=== PATIENT | male | born 1960 | race Caucasian/White ===

== ENCOUNTER → 2018-02-16 09:08 | Outpatient (CLI) | payer OTHER, SELFPAY ==
--- NOTE | 2018-02-16 09:15 | US_ITS ---
US abdomen complete HISTORY: Abdominal pain right-sided abdominal pain ITS.REASON: ACUTE PANCREATITIS ORDERING PHYSICIAN: Clay Kwok MD PATIENT AGE: 57 years COMPARISON: CT abdomen 02/03/2018 TECHNIQUE. Transabdominal Ultrasound entire abdomen/upper abdomen . FINDINGS: PANCREAS:Unremarkable. Only fair visualization. Partial obscured. No obvious mass or abnormal fluid collection. No ductal dilatation LIVER: Fatty liver changes. Slightly patchy. No significant focal liver lesions evident. No intrahepatic biliary ductal dilatation. Portal vein normal direction flow and caliber. Common duct. Normal caliber 3.7 mm at hilum of liver Kidneys. Cortex well-maintained bilaterally. No hydronephrosis or significant mass. RIGHT KIDNEY:. Cystic area at central right kidney 1 cm x 1.2 cm likely small parapelvic cyst. LEFT KIDNEY:Unremarkable. No hydronephrosis. Normal size and echogenicity. GALLBLADDER: Trace sludge No gallstones, gallbladder wall thickening, pericholecystic fluid, or biliary dilatation. AORTA:No evidence of aneurysmal dilatation. Normal caliber and tapers as it continues distal. SPLEEN:,... Difficult to evaluate. Relatively small spleen As seen on prior CT, but WNL.. ASCITES:None demonstrated. =======IMPRESSION:======== Minor observations. No prominent findings.. . Gallbladder. Small with trace sludge. no gallstones Liver. Mild patchy fatty changes. Kidneys normal size, with likely 1 cm parapelvic cyst right kidney
== END ==
PROVIDERS: PCP Family Medicine; Visit Provider Family Medicine
DX: K85.90 Acute pancreatitis without necrosis or infection, unspecified (principal)
CPT/HCPCS: 76700

== ENCOUNTER → 2018-07-10 15:29 | Outpatient (CLI) | payer OTHER, SELFPAY ==
--- NOTE | 2018-07-10 15:35 | XR_ITS ---
XR chest 2V HISTORY: ITS.REASON: SOB,COUGH,TOBACCO USE ORDERING PHYSICIAN: Alley Leonardo PATIENT AGE: 58 years COMPARISON: 07/26/2015 FINDINGS: The cardiomediastinal silhouette and pulmonary vascularity are within normal limits. The lungs are clear without infiltrates, suspicious nodules, or pleural effusions. No acute bony abnormalities. IMPRESSION: Negative chest, no acute finding
== END ==
PROVIDERS: PCP Family Medicine; Visit Provider Nurse Practitioner Family
DX: R06.02 Shortness of breath (principal); R05 Cough; Z72.0 Tobacco use
CPT/HCPCS: 71046

== ENCOUNTER → 2019-01-18 12:07 | Outpatient (CLI) | payer OTHER, SELFPAY ==
[2019-01-18 12:27] LABS: Basophils # 0.1 K/mm3 (0-0.2); Basophils % 0.5 % (0.1-2.0); Eosinophils # 0.1 K/mm3 (0.0-0.4); Hematocrit 46.5 % (42.0-52.0); Hemoglobin 15.1 g/dL (14.1-18.0); Lymphocytes # 2.5 K/mm3 (0.7-4.5); Lymphocytes % 27.7 % (10-50); Mean Corpuscular HGB Conc 32.5 g/dL (31.8-35.4); Mean Corpuscular Hemoglobin 30.2 pg (27.0-31.2); Mean Corpuscular Volume 92.9 fl (80-94); Mean Platelet Volume 6.6 fl (7.4-10.4); Monocytes # 0.6 K/mm3 (0.1-1.0); Monocytes % 6.8 % (1.7-9.3); Neutrophils # 5.9 K/mm3 (1.8-7.8); Neutrophils % 64.1 % (37.0-80.0); Platelet Count 359 K/mm3 (142-424); Red Cell Distribution Width 13.3 % (11.5-17.5); White Blood Count 9.2 K/mm3 (4.8-10.8)
[2019-01-18 13:06] LABS: Alanine Aminotransferase 30 U/L (12-78); Albumin Level 3.9 gm/dL (3.4-5.0); Albumin/Globulin Ratio 1.3 (1.1-1.8); Alkaline Phosphatase 86 U/L (46-116); Amylase 50 U/L (25-115); Aspartate Amino Transferase 22 U/L (15-37); Bilirubin,Total 0.3 mg/dL (0.2-1.0); Blood Urea Nitrogen 13 mg/dL (7-18); Calcium 8.6 mg/dL (8.5-10.1); Carbon Dioxide 27 mmol/L (21.0-32.0); Chloride 105 mmol/L (98-107); Creatinine,Serum 1.02 mg/dL (0.70-1.30); Estimated Glomerular Filt Rate 75 ml/min (>60); GFR (African American) 91 ML/MIN (>60); Globulin 3.1 gm/dl (1.3-3.2); Glucose 93 mg/dL (74-106); Lipase 133 u/L (73-393); Sodium 142 mmol/L (136-145)
[2019-01-19 15:05] LABS: H. pylori Breath Test Negative (Negative)
== END ==
PROVIDERS: PCP Family Medicine; Visit Provider Nurse Practitioner Family
DX: R10.10 Upper abdominal pain, unspecified (principal); R14.0 Abdominal distension (gaseous)
CPT/HCPCS: 36415; 80053; 82150; 83013; 83690; 85025

== ENCOUNTER → 2019-02-01 10:50 | Outpatient (CLI) | payer OTHER, SELFPAY ==
[2019-02-01 11:50] LABS: Blood Urea Nitrogen 13 mg/dL (7-18); Creatinine,Serum 1.08 mg/dL (0.70-1.30); Estimated Glomerular Filt Rate 70 ml/min (>60); GFR (African American) 85 ML/MIN (>60)
== END ==
PROVIDERS: Visit Provider Nurse Practitioner Family
DX: Z01.818 Encounter for other preprocedural examination (principal)
CPT/HCPCS: 36415; 82565; 84520

== ENCOUNTER → 2019-02-02 08:57 | Outpatient (CLI) | payer OTHER, SELFPAY ==
--- NOTE | 2019-02-02 09:03 | CT_ITS ---
PROCEDURE: CT ABDOMEN PELVIS W CON CLINICAL HISTORY: ABD WALL HERNIA, ABD BLOATING Abdominal wall bloating after eating, evaluate for hernia COMPARISON: ABDPELWO CT abdomen pelvis wo con from 02/03/2018 TECHNIQUE: 75 mL Optiray 350 Axial images obtained with sagittal and coronal reformats. All CT scans at the facility use one or more dose reduction, viz: automated exposure control, ma/kV adjustment per patient size (including targeted exams where dose is matched to indication, i.e. head), or iterative reconstruction technique. FINDINGS: No acute finding in the lung bases. The liver, gallbladder, spleen, adrenal glands, and pancreas have an unremarkable appearance. No renal or ureteral calculi. There is mild prominence of the right renal pelvis probably related to parapelvic renal cyst. No ureteral dilatation or ureteral calculi evident. No evidence of appendicitis. No intestinal obstruction or free air. There is mild thickening of the sigmoid colon nonspecific. No abdominal wall hernia is evident. No acute bony anomalies. IMPRESSION: No acute finding. No umbilical hernia apparent Dictated by: Randell Chawla MD 02/03/2019 12:51 Electronically signed by Randell Chawla MD in [facility] 02/03/2019 12:51
== END ==
PROVIDERS: PCP Family Medicine; Visit Provider Nurse Practitioner Family
DX: K43.9 Ventral hernia without obstruction or gangrene (principal); R14.0 Abdominal distension (gaseous)
CPT/HCPCS: 74177; Q9967

== ENCOUNTER → 2020-01-26 11:04 | Outpatient (CLI) | payer OTHER, SELFPAY ==
--- NOTE | 2020-01-26 11:11 | XR_ITS ---
PROCEDURE: XR LUMBAR SPINE 6V W BENDING CLINICAL INDICATION: LUMBAGO W/ SCIATICA L AND R SIDE COMPARISON: No exams were available for comparison FINDINGS: Minimal lumbar curvature convex left. Mild multilevel endplate osteophytes are present with mild degenerative disc disease at L3-L4. There is some endplate sclerosis superiorly at L5. No fracture or dislocation. No lytic or blastic change. Incidental note is made of vascular calcification. Flexion and extension views are obtained showing no abnormal subluxation. Other findings:None. IMPRESSION: Mild lumbar spondylosis as described above with degenerative changes. No abnormal subluxation in flexion or extension Dictated by: Randell Chawla MD 01/26/2020 16:52 Randell Chawla MD in [facility] 01/26/2020 16:52
== END ==
PROVIDERS: PCP Family Medicine; Visit Provider Family Medicine
DX: M54.42 Lumbago with sciatica, left side (principal); M54.41 Lumbago with sciatica, right side
CPT/HCPCS: 72114

== ENCOUNTER → 2020-02-02 09:24 | Outpatient (CLI) | payer OTHER, SELFPAY ==
--- NOTE | 2020-02-02 09:28 | US_ITS ---
APPROVED REPORT Exam Type: Lower Extremity Segmental Pressures Dye Mixer: Alley Lakhani RVT Indications Claudication: Bilaterally Rest Pain: Bilaterally Current Smoker CAD BILATERAL LEG PAIN Risk Factors Hypertension CAD Cardiac Disease Current Smoker Pressures/Indices Right Indices Left Indices Brachial 129.00 mmHg Brachial 133.00 mmHg Low Thigh 89.00 mmHg 0.67 Low Thigh 158.00 mmHg 1.19 Calf 91.00 mmHg 0.68 Calf 114.00 mmHg 0.86 Ankle(PT) 88.00 mmHg 0.66 Ankle(PT) 127.00 mmHg 0.95 Ankle(DP) 77.00 mmHg 0.58 Ankle(DP) 135.00 mmHg 1.02 Digit 65.00 mmHg 0.49 Digit 119.00 mmHg 0.89 Findings RT GREGORY:0.6 LT GREGORY:1.02 RT TBI:0.4 LT TBI:0.8 PT WAS UNABLE TO WALK ON TREADMILL R/T SEVERE LEG PAIN WAVEFORMS DECREASED AT RT ANKLE LEVEL PULSES DIMINISHED ON THE RIGHT Conclusion RT GREGORY:0.6 LT GREGORY:1.02 RT TBI:0.4 LT TBI:0.8 PT WAS UNABLE TO WALK ON TREADMILL R/T SEVERE LEG PAIN WAVEFORMS DECREASED AT RT ANKLE LEVEL PULSES DIMINISHED ON THE RIGHT Moderate right arterial disease Electronically signed by : Randell Chawla MD 02/02/2020 18:31:44
== END ==
PROVIDERS: PCP Family Medicine; Visit Provider Family Medicine
DX: I73.9 Peripheral vascular disease, unspecified (principal)
CPT/HCPCS: 93923

== ENCOUNTER 2020-08-08 18:25 | Emergency (ER) | payer BC, SELFPAY ==
[2020-08-08] VITALS (13 sets, daily range): BP systolic 122–131; BP diastolic 74; PULSE 66–76; RESP 14–18; TEMP 36.6–36.7; O2SAT 93–97; BMI 29.2
--- NOTE | 2020-08-08 18:12 | ECG_ITS ---
APPROVED REPORT Exam: Resting ECG HR:72 bpm ECG Measurements Heart Rate 72 AXES HI 196 P 49 QRSd 90 QRS 6 QT 398 T 35 QTc 435 Conclusion Normal sinus rhythm Inferior infarct, old changes late transition - old changes Abnormal ECG Electronically signed by : Clay Gonzales, 08/09/2020 17:58:52
--- NOTE | 2020-08-08 18:31 | XR_ITS ---
PROCEDURE: XR CHEST 2V CLINICAL HISTORY: chest pain Smoker COMPARISON: CR CXR1 CHEST-PORTABLE from 06/22/2015 CR CXR1 CHEST-PORTABLE from 07/26/2015 CR CXR2V XR chest 2V from 07/10/2018 FINDINGS: The cardiomediastinal silhouette and pulmonary vascularity are within normal limits. COPD changes with coarsening of the bronchovascular markings which may be seen with smoking related lung disease. No lobar consolidation or collapse. Mild degenerative changes thoracic spine IMPRESSION: Chronic changes, no acute finding Dictated by: Randell Chawla MD 08/09/2020 07:17 Randell Chawla MD in [facility] 08/09/2020 07:17
[2020-08-08 18:41] LABS: Basophils # 0.1 K/mm3 (0-0.2); Basophils % 0.7 % (0.1-2.0); Eosinophils # 0.1 K/mm3 (0.0-0.4); Eosinophils % 1.7 % (0.1-12.0); Hematocrit 46.5 % (42.0-52.0); Hemoglobin 15.3 g/dL (14.1-18.0); Lymphocytes % 35.6 % (10-50); Mean Corpuscular HGB Conc 32.9 g/dL (31.8-35.4); Mean Corpuscular Hemoglobin 29.6 pg (27.0-31.2); Mean Platelet Volume 6.5 fl (7.4-10.4); Monocytes # 0.6 K/mm3 (0.1-1.0); Monocytes % 7.5 % (1.7-9.3); Neutrophils # 4.6 K/mm3 (1.8-7.8); Neutrophils % 54.6 % (37.0-80.0); Platelet Count 319 K/mm3 (142-424); Red Blood Count 5.17 M/mm3 (4.60-6.20); Red Cell Distribution Width 13.6 % (11.5-17.5); White Blood Count 8.3 K/mm3 (4.8-10.8)
[2020-08-08 18:44] LABS: Chloride 105 mmol/L (98-107)
[2020-08-08 18:45] LABS: Sodium 139 mmol/L (136-145)
[2020-08-08 18:48] LABS: Blood Urea Nitrogen 19 mg/dl (9-20); Calcium 9.1 mg/dl (8.4-10.2); Carbon Dioxide 27 mmol/L (22.0-30.0); Creatinine Clearance Estimated 87 mL/min (50-200); Estimated Glomerular Filt Rate 76 ml/min (>60); GFR (African American) 93 ML/MIN (>60); Glucose 130 mg/dl (74-100)
[2020-08-08 19:04] LABS: Troponin I < 0.01 ng/ml (0.00-0.034)
--- NOTE | 2020-08-08 20:52 | HMH.EDCP ---
ED Disposition Clinical Impression: Unstable angina pectoris, PAD (peripheral artery disease), Tobacco dependence Disposition: Left Against Medical Advice Condition on Discharge: Good Instructions: DI for Angina Additional Instructions: see card in am and return if any problems Referrals: Clay Kwok MD [Primary Care Provider] - - Critical Care Critical Care Time: No Attestation: On 08/08/20, the high probability of a clinically significant, sudden or life threatening deterioration of the following system(s) required my full and direct attention, intervention and personal management. The time I documented below is in addition to time spent performing reported procedures but includes the following listed in this critical care notation. Medical Decision Making - Medical Records Medical records reviewed: Yes: I reviewed the patient's medical records. - Taran Inquiry Pt receiving controlled substance: No Vital Signs: 08/08/20 18:25 08/08/20 18:28 08/08/20 18:30 Temperature 97.9 F Temperature Source Oral Pulse Rate 76 72 Pulse Rate [Left Radial] 75 Respiratory Rate 18 Blood Pressure 126/74 Blood Pressure [Right Arm] 122/74 Blood Pressure Mean 98 Blood Pressure Mean [Right Arm] 90 Blood Pressure Source [Right Arm] Automatic Cuff Blood Pressure Position [Right Arm] Sitting 02 Sat by Pulse Oximetry 94 L 95 94 L Oxygen Delivery Method Room Air 08/08/20 18:45 08/08/20 19:00 08/08/20 19:15 Temperature Temperature Source Pulse Rate 67 74 76 Pulse Rate [Left Radial] Respiratory Rate Blood Pressure Blood Pressure [Right Arm] Blood Pressure Mean Blood Pressure Mean [Right Arm] Blood Pressure Source [Right Arm] Blood Pressure Position [Right Arm] 02 Sat by Pulse Oximetry 94 L 95 96 Oxygen Delivery Method 08/08/20 19:30 08/08/20 19:45 08/08/20 20:00 Temperature Temperature Source Pulse Rate 72 72 68 Pulse Rate [Left Radial] Respiratory Rate Blood Pressure Blood Pressure [Right Arm] Blood Pressure Mean Blood Pressure Mean [Right Arm] Blood Pressure Source [Right Arm] Blood Pressure Position [Right Arm] 02 Sat by Pulse Oximetry 93 L 95 96 Oxygen Delivery Method 08/08/20 20:15 08/08/20 20:30 08/08/20 20:45 Temperature Temperature Source Pulse Rate 66 70 68 Pulse Rate [Left Radial] Respiratory Rate Blood Pressure Blood Pressure [Right Arm] Blood Pressure Mean Blood Pressure Mean [Right Arm] Blood Pressure Source [Right Arm] Blood Pressure Position [Right Arm] 02 Sat by Pulse Oximetry 96 96 95 Oxygen Delivery Method - Lab Data Lab results reviewed: Yes: I reviewed the patient's lab results. Lab Results 08/08/20 18:30: WBC 8.3, RBC 5.17, Hgb 15.3, Hct 46.5, MCV 90.0, MCH 29.6, MCHC 32.9, RDW 13.6, Plt Count 319, MPV 6.5 L, Neut % (Auto) 54.6, Lymph % (Auto) 35.6, [place] % (Auto) 7.5, Eos % (Auto) 1.7, Baso % (Auto) 0.7, Neut # (Auto) 4.6, Lymph # (Auto) 3.0, [place] # (Auto) 0.6, Eos # (Auto) 0.1, Baso # (Auto) 0.1 08/08/20 18:30: Sodium 139, Potassium 4.0, Chloride 105, Carbon Dioxide 27, Anion Gap 11.0, BUN 19, Creatinine 1.00, Estimated Creat Clear 87, Estimated GFR 76, Est GFR ( Amer) 93, Glucose 130 H, Calcium 9.1, Troponin I < 0.01 08/08/20 21:17: Troponin I < 0.01 Result diagrams: 08/08/20 18:30 08/08/20 18:30 Orders (Tests/Meds): ED MEDICATIONS Discontinued Medications Generic Name Dose Route Start Last Admin Trade Name Freq PRN Reason Stop Dose Admin Aspirin 324 mg 08/08/20 19:04 08/08/20 19:05 Aspirin 81mg Chewable Tablet PO 08/08/20 19:05 324 mg ONCE ONE Administration ORDERS Category Date Time Status XR chest 2V Stat Exams 08/08/20 18:31 Taken Troponin I Q3H Lab 08/09/20 00:45 Ordered - Radiology Data #1 Image(s): Chest Image Reviewed: Yes I reviewed the patient's radiology image Preliminary Findin
--- NOTE | 2020-08-08 21:00 | ECG_ITS ---
APPROVED REPORT Exam: Resting ECG HR:55 bpm ECG Measurements Heart Rate 55 AXES SD 160 P 48 QRSd 84 QRS 3 QT 436 T 23 QTc 417 Conclusion Sinus bradycardia Old inferior changes Late r wave progression Abnormal ECG Electronically signed by : Clay Gonzales, 08/09/2020 17:57:57
[2020-08-08 21:48] LABS: Troponin I < 0.01 ng/ml (0.00-0.034)
--- NOTE | 2020-08-08 21:53 | PC.NURSE ---
patient refused to be admitted. pt signed AMA
== END 2020-08-08 21:58 | disposition left against medical advice (07) ==
PROVIDERS: Emergency Provider Family Medicine; PCP Family Medicine
DX: I20.0 Unstable angina (principal); I73.9 Peripheral vascular disease, unspecified; F17.210 Nicotine dependence, cigarettes, uncomplicated; Z20.822 Contact with and (suspected) exposure to COVID-19; I25.10 Atherosclerotic heart disease of native coronary artery without angina pectoris; I25.2 Old myocardial infarction; I10 Essential (primary) hypertension; E78.5 Hyperlipidemia, unspecified; Z95.5 Presence of coronary angioplasty implant and graft; Z88.5 Allergy status to narcotic agent
CPT/HCPCS: 71046; 80048; 84484; 85025; 93005; 99282

== ENCOUNTER → 2020-08-09 13:18 | Outpatient (CLI) | payer OTHER, SELFPAY | PROVIDERS: PCP Family Medicine; Visit Provider Internal Medicine | DX: Z01.818 Encounter for other preprocedural examination (principal); Z20.822 Contact with and (suspected) exposure to COVID-19; I25.10 Atherosclerotic heart disease of native coronary artery without angina pectoris; I10 Essential (primary) hypertension; I73.9 Peripheral vascular disease, unspecified; M79.604 Pain in right leg; M79.605 Pain in left leg; E78.5 Hyperlipidemia, unspecified; F17.200 Nicotine dependence, unspecified, uncomplicated; Z95.5 Presence of coronary angioplasty implant and graft | CPT/HCPCS: U0003 ==

== ENCOUNTER 2020-08-10 07:40 | Day surgery (SDC) | payer OTHER, SELFPAY ==
[2020-08-10] VITALS (12 sets, daily range): BP systolic 108–171; BP diastolic 64–98; PULSE 53–76; RESP 16–18; TEMP 36.9; O2SAT 91–97; BMI 26.9
--- NOTE | 2020-08-10 | IR_ITS ---
APPROVED REPORT Patient Location: Outpatient Cost Accountant: CRISTOBAL Looney RT (R) PROCEDURES Left heart catheterization Left ventriculogram Selective coronary angiogram Drug-eluting stent deployment to the proximal mid dominant right coronary Catheter placement in the left external iliac artery Left external iliac artery antegrade angiogram with unilateral runoff to the left foot Catheter placement in the right external iliac artery Right external iliac artery antegrade angiogram with unilateral runoff to the right foot Catheter placement distal abdominal aorta Distal abdominal aortography INDICATION Known coronary disease, Angina pectoris type IV, Peripheral artery disease, Abnormal GREGORY, Miriam claudication class III Informed consent was obtained prior to the procedure. COMPLICATIONS None Estimated Blood Loss: Less than 10 mls TECHNIQUE One percent lidocaine used to anesthetize the right anterior aspect of the wrist. The right radial artery was accessed via the Seldinger technique. A 6 Prydeinig sheath was placed in the right radial artery. 2.5 mg of verapamil, 800 mcg of nitroglycerin, 1mg Lidocaine and 5000 U Heparin were given through the arterial sheath. The trap catheter was also used to perform left heart catheterization, left ventriculogram and selective coronary angiogram. A PV multi curve catheter was also used to perform catheterization of the right coronary artery. The same catheter was placed in the left external iliac artery and antegrade angiography was performed. There were technical errors with the camera which had to be reset after angiography of the left leg therefore a digital subtraction could not be adequately performed. The catheter was then pulled back and placed into the right external iliac artery where antegrade angiography was performed. Following this the cath was placed in the distal abdominal aorta and distal abdominal aortography was performed. Following this a 6 Prydeinig multipurpose catheter was placed in the right coronary artery after therapeutic heparin and a therapeutic ACT were achieved. A BMW wire was placed distally and a 3.5 x 15 mm resolute Jaun stent was deployed at 20 thania reducing the stenosis. A 3.5 x 8 mm noncompliant balloon was then deployed at 24 thania in the mid segment of the under deployed stent in order to post dilate. An additional 3.5 x 8 mm balloon was then placed in the same segment and deployed at 24 thania further reducing the stenosis. Still there were angiographically unsatisfactory results therefore a 4 mm x 12 mm noncompliant balloon was placed in the same area and deployed at 24 thania further post dilating this time giving satisfactory results. After achieving excellent angiographic results with DOUG-3 flow down the vessel before and after the procedure the apparatus was removed the sheath was removed good hemostasis was achieved using TR banding patient was transferred to the postop holding in stable condition ANGIOGRAPHIC RESULTS The left main artery Has an ostial 20% stenosis The left anterior descending artery Is a stent of proximal segment which is widely patent with minimal in-stent restenosis with excellent proximal distal transitioning. The LAD is a large-caliber vessel which wraps the apex The circumflex artery Nondominant normal The right coronary artery Is a large dominant vessel has proximal 10 to 20% stenosis with a mid vessel hazy greater than 70% stenosis. Distally there are additional 30% stenoses which extend into the proximal posterior descending artery The HASSAN ventriculogram reveals Slightly hyperdynamic at 70% The left ventricular end-diastolic pressure 10 to 15 mmHg The distal abdominal aorta is mildly ather
[2020-08-10 12:46] LABS: CATHL Activated Clotting Time 338 SEC (74-125)
--- NOTE | 2020-08-10 13:30 | HMH.PHACLD ---
Stefano Catalan has received discharge medication counseling on the following medications: NEW MEDICATIONS: LOSARTAN CONTINUED MEDICATIONS: ASPIRIN, PLAVIX, BISOPROLOL PATIENT CAN'T TAKE ANY STATINS
== END 2020-08-10 13:33 | disposition home or self-care (01) ==
PROVIDERS: PCP Family Medicine; Visit Provider Internal Medicine
DX: I70.223 Atherosclerosis of native arteries of extremities with rest pain, bilateral legs (principal); T82.855A Stenosis of coronary artery stent, initial encounter; I25.118 Atherosclerotic heart disease of native coronary artery with other forms of angina pectoris; I10 Essential (primary) hypertension; I77.1 Stricture of artery; Y83.1 Surgical operation with implant of artificial internal device as the cause of abnormal reaction of the patient, or of later complication, without mention of misadventure at the time of the procedure; Z79.899 Other long term (current) drug therapy; Z95.5 Presence of coronary angioplasty implant and graft; F17.200 Nicotine dependence, unspecified, uncomplicated; E78.5 Hyperlipidemia, unspecified
CPT/HCPCS: 36247; 75716; 85347; 92928; 93458; 99152; 99153; C1725; C1769; C1874; C9600; J1644; Q9966; Q9967

== ENCOUNTER 2020-12-15 08:53 | Emergency (ER) | payer OTHER, SELFPAY ==
--- NOTE | 2020-12-15 08:51 | ECG_ITS ---
APPROVED REPORT Exam: Resting ECG HR:66 bpm ECG Measurements Heart Rate 66 AXES MO 186 P 67 QRSd 82 QRS 41 QT 398 T 56 QTc 417 Conclusion Normal sinus rhythm Normal ECG Electronically signed by : Clay Gonzales, 12/16/2020 15:21:19
[2020-12-15 08:53] VITALS: BP 147/78; PULSE 68; RESP 16; TEMP 36.7; O2SAT 97; BMI 29.2
[2020-12-15 09:00] VITALS: BP 132/72; RESP 23
--- NOTE | 2020-12-15 09:04 | XR_ITS ---
PROCEDURE: XR CHEST PORTABLE CLINICAL HISTORY: cough COMPARISON: CR CXR1 CHEST-PORTABLE from 07/26/2015 CR CXR2V XR chest 2V from 07/10/2018 CR XR CHEST 2V from 08/08/2020 FINDINGS: The cardiomediastinal silhouette and pulmonary vascularity are within normal limits. Vascular calcification is noted. Minor chronic interstitial changes are noted. No focal infiltrates, suspicious nodules, or pleural effusions. No acute bony abnormalities. IMPRESSION: No focal consolidation or pleural effusions. Dictated by: Leonor Capellan 12/15/2020 09:52 Leonor Capellan in [place] 12/15/2020 09:52
[2020-12-15 09:10] LABS: Basophils # 0.1 K/mm3 (0-0.2); Basophils % 1.1 % (0.1-2.0); Eosinophils # 0.2 K/mm3 (0.0-0.4); Eosinophils % 2.2 % (0.1-12.0); Hematocrit 47.1 % (42.0-52.0); Hemoglobin 15.9 g/dL (14.1-18.0); Lymphocytes # 2.5 K/mm3 (0.7-4.5); Lymphocytes % 36.2 % (10-50); Mean Corpuscular HGB Conc 33.8 g/dL (31.8-35.4); Mean Corpuscular Hemoglobin 30.5 pg (27.0-31.2); Mean Corpuscular Volume 90.4 fl (80-94); Mean Platelet Volume 6.6 fl (7.4-10.4); Monocytes # 0.4 K/mm3 (0.1-1.0); Monocytes % 5.2 % (1.7-9.3); Neutrophils # 3.9 K/mm3 (1.8-7.8); Neutrophils % 55.2 % (37.0-80.0); Platelet Count 333 K/mm3 (142-424); Red Blood Count 5.22 M/mm3 (4.60-6.20); Red Cell Distribution Width 13.9 % (11.5-17.5)
[2020-12-15 09:11] LABS: Chloride 106 mmol/L (98-107)
[2020-12-15 09:12] LABS: Potassium 4.2 mmoL/L (3.5-5.1); Sodium 142 mmol/L (136-145)
[2020-12-15 09:14] LABS: Alanine Aminotransferase 24 U/L (12-78); Alkaline Phosphatase 91 U/L (38-126); Anion Gap 11.2 mEq/L (5-15); Aspartate Amino Transferase 32 U/L (17-59); Bilirubin,Total 0.4 mg/dl (0.2-1.3); Blood Urea Nitrogen 14 mg/dl (9-20); Carbon Dioxide 29 mmol/L (22.0-30.0); Creatinine Clearance Estimated 72 mL/min (50-200); Estimated Glomerular Filt Rate 62 ml/min (>60); GFR (African American) 75 ML/MIN (>60)
[2020-12-15 09:15] LABS: Albumin Level 4.5 g/dl (3.5-5.0); Albumin/Globulin Ratio 1.7 (1.1-1.8); Globulin 2.7 g/dL (1.3-3.2); Glucose 123 mg/dl (74-100); Total Protein,Serum 7.2 g/dl (6.3-8.2)
--- NOTE | 2020-12-15 09:15 | HMH.EDCP ---
ED Disposition Clinical Impression: Musculoskeletal chest pain Disposition: Home, Self-Care Condition on Discharge: Good Instructions: DI for Atypical Chest Pain Referrals: Provider,MD Glenys [Primary Care Provider] - Vj Michaels MD [Staff Physician] - - Critical Care Critical Care Time: No Attestation: On , the high probability of a clinically significant, sudden or life threatening deterioration of the following system(s) required my full and direct attention, intervention and personal management. The time I documented below is in addition to time spent performing reported procedures but includes the following listed in this critical care notation. Medical Decision Making - Medical Records Medical records reviewed: Yes: I reviewed the patient's medical records. - Taran Inquiry Pt receiving controlled substance: No Vital Signs: 12/15/20 08:53 12/15/20 09:00 12/15/20 09:31 Temperature 98.0 F Temperature Source Oral Pulse Rate 61 Pulse Rate [Right] 68 Respiratory Rate 16 23 Blood Pressure 132/72 142/74 H Blood Pressure [Right Arm] 147/78 H Blood Pressure Mean 108 96 Blood Pressure Mean [Right Arm] 101 02 Sat by Pulse Oximetry 97 96 Oxygen Delivery Method Room Air - Lab Data Lab Results 12/15/20 08:53: WBC 7.0, RBC 5.22, Hgb 15.9, Hct 47.1, MCV 90.4, MCH 30.5, MCHC 33.8, RDW 13.9, Plt Count 333, MPV 6.6 L, Neut % (Auto) 55.2, Lymph % (Auto) 36.2, [place] % (Auto) 5.2, Eos % (Auto) 2.2, Baso % (Auto) 1.1, Neut # (Auto) 3.9, Lymph # (Auto) 2.5, [place] # (Auto) 0.4, Eos # (Auto) 0.2, Baso # (Auto) 0.1 12/15/20 08:53: Sodium 142, Potassium 4.2, Chloride 106, Carbon Dioxide 29, Anion Gap 11.2, BUN 14, Creatinine 1.20, Estimated Creat Clear 72, Estimated GFR 62, Est GFR ( Amer) 75, Glucose 123 H, Calcium 9.0, Total Bilirubin 0.4, AST 32, ALT 24, Alkaline Phosphatase 91, Troponin I < 0.01, Total Protein 7.2, Albumin 4.5, Globulin 2.7, Albumin/Globulin Ratio 1.7 Result diagrams: 12/15/20 08:53 12/15/20 08:53 Orders (Tests/Meds): ED MEDICATIONS Discontinued Medications Generic Name Dose Route Start Last Admin Trade Name Ede PRN Reason Stop Dose Admin Acetaminophen 1,000 mg 12/15/20 09:05 12/15/20 09:07 Acetaminophen 500mg Tab PO 12/15/20 09:06 1,000 mg ONCE ONE Administration ORDERS Category Date Time Status Troponin I Q3H Lab 12/15/20 12:15 Ordered Troponin I Q3H Lab 12/15/20 15:15 Ordered - Radiology Data #1 Image(s): Chest Image Reviewed: Yes I reviewed the patient's radiology results, Yes I reviewed the patient's radiology image, Yes I have reviewed radiologist's interpretation Preliminary Findings: Normal/NAD, No Infiltrates Seen - ECG Data Tracing #1 normal ventricular rate 66bpm ECG initial impression date: 12/15/20 ECG initial impression time: 08:51 ECG normal with no acute: arrhythmias, ischemia, conduction abnormalities, chamber hypertrophy - Reevaluation(s) Time: 09:57 Reevaluation #1: On reevaluation, patient is feeling better. Negative troponin. No EKG changes. Again the patient has reproducible chest wall pain. Low risk for acute coronary syndrome based on louis score. 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 Given strict return precautions. Verbalized understanding. - AYO Score for Non-Stemi Age of Patient: 50-59 years old Heart Rate: 50-69 bpm Systolic Blood Pressure: 140-159 mmHg Serum Creatinine: <0.40 mg/dl CHF Killip Class: I-No CHF Other Risk Factors: None Non-Stemi Risk Score: 69 Risk Stratification: 1-108 = Low Risk Medical Decision Narrative: 60 y/o M presenting to the ER with subacute chest pain since yesterday. Pain is reproducible to palpation. Appears to be musculoskeletal in nature. Workup initiated. Chest Pain HPI - General Chief Complaint: Chest Pain Stated Complaint: chest pain Time Seen by Provider: 12/15/20 09:00 Mode of Arrival: [facility]
--- NOTE | 2020-12-15 09:19 | PC.NURSE ---
Rad at bedside.
[2020-12-15 09:30] LABS: Troponin I < 0.01 ng/ml (0.00-0.034)
[2020-12-15 09:31] VITALS: BP 142/74; PULSE 61; O2SAT 96
--- NOTE | 2020-12-15 10:00 | PC.NURSE ---
@ bedside updating pt.
[2020-12-15 10:22] VITALS: BP 126/78; PULSE 61; RESP 16; TEMP 36.7; O2SAT 96
== END 2020-12-15 10:22 | disposition home or self-care (01) ==
PROVIDERS: Emergency Provider Emergency Medicine
DX: R07.89 Other chest pain (principal); I25.10 Atherosclerotic heart disease of native coronary artery without angina pectoris; I25.2 Old myocardial infarction; I10 Essential (primary) hypertension; F17.210 Nicotine dependence, cigarettes, uncomplicated
CPT/HCPCS: 71045; 80053; 84484; 85025; 93005; 99284

== ENCOUNTER → 2021-02-06 15:16 | Outpatient (CLI) | payer OTHER, SELFPAY | PROVIDERS: PCP Family Medicine; Visit Provider Nurse Practitioner | DX: Z20.822 Contact with and (suspected) exposure to COVID-19 (principal) | CPT/HCPCS: C9803; U0003; U0005 ==

== ENCOUNTER → 2021-02-12 09:39 | Outpatient (CLI) | payer OTHER, SELFPAY | PROVIDERS: PCP Family Medicine; Visit Provider Nurse Practitioner | DX: Z20.822 Contact with and (suspected) exposure to COVID-19 (principal); U07.1 COVID-19 | CPT/HCPCS: C9803; U0003; U0005 ==

== ENCOUNTER → 2021-05-21 14:17 | Outpatient (CLI) | payer OTHER, SELFPAY | PROVIDERS: PCP Family Medicine; Visit Provider Nurse Practitioner | DX: Z20.822 Contact with and (suspected) exposure to COVID-19 (principal) | CPT/HCPCS: C9803; U0003; U0005 ==

== ENCOUNTER 2023-10-30 11:34 | Outpatient (CLI) | payer OTHER, SELFPAY ==
[2023-10-30 11:59] LABS: Basophils # 0.1 K/mm3 (0-0.2); Basophils % 1.4 % (0.1-2.0); Eosinophils # 0.2 K/mm3 (0.0-0.4); Eosinophils % 2.5 % (0.1-12.0); Hematocrit 48.8 % (42.0-52.0); Lymphocytes # 2.5 K/mm3 (0.7-4.5); Lymphocytes % 36.2 % (10-50); Mean Corpuscular HGB Conc 32.7 g/dL (31.8-35.4); Mean Corpuscular Hemoglobin 30.6 pg (27.0-31.2); Mean Corpuscular Volume 93.8 fl (80-94); Monocytes # 0.5 K/mm3 (0.1-1.0); Monocytes % 7.7 % (1.7-9.3); Neutrophils # 3.6 K/mm3 (1.8-7.8); Neutrophils % 52.3 % (37.0-80.0); Platelet Count 289 K/mm3 (142-424); Red Blood Count 5.21 M/mm3 (4.60-6.20); Red Cell Distribution Width 14.2 % (11.5-17.5)
[2023-10-30 12:16] LABS: Chloride 103 mmol/L (98-107); Sodium 139 mmol/L (136-145)
[2023-10-30 12:19] LABS: Alanine Aminotransferase 31 U/L (12-78); Albumin Level 4.3 g/dl (3.5-5.0); Alkaline Phosphatase 82 U/L (38-126); Aspartate Amino Transferase 33 U/L (17-59); Bilirubin,Direct 0.2 mg/dl (0.0-0.4); Bilirubin,Indirect 0.1 mg/dL (0.0-0.9); Bilirubin,Total 0.3 mg/dl (0.2-1.3); Bilirubin,Unconjugated 0.1 mg/dL (0.0-1.1); Blood Urea Nitrogen 14 mg/dl (9-20); Calcium 9.6 mg/dl (8.4-10.2); Carbon Dioxide 29 mmol/L (22.0-30.0); Estimated Glomerular Filt Rate 61 ml/min (>60); GFR (African American) 74 ML/MIN (>60); Glucose 99 mg/dl (74-100); Total Protein,Serum 7.3 g/dl (6.3-8.2)
[2023-10-30 12:20] LABS: HDL Cholesterol 43 mg/dl (40-60)
[2023-10-30 12:31] LABS: Direct LDL Cholesterol 123.67 mg/dL (100-129)
[2023-10-30 13:08] LABS: Chol/HDL Ratio 4.9 (1-3.5); Cholesterol 209 mg/dl (140-200); Triglycerides 198 mg/dl (30-150); VLDL Cholesterol 40 mg/dL (0-40)
[2023-10-30 16:31] LABS: Triiodothryronine (T3) Uptake 30 % (23.5-40.5)
[2023-10-30 16:32] LABS: Free Thyroxine Index 1.9 ug/dL (5.93-13.13); T4 (Thyroxine) 6.4 ug/dl (5.53-11.0)
== END 2023-10-30 23:59 | disposition home or self-care (01) ==
LOC: LAB 11:35
PROVIDERS: PCP Family Medicine; Visit Provider Physician Assistant
DX: E78.2 Mixed hyperlipidemia; I10 Essential (primary) hypertension; F17.210 Nicotine dependence, cigarettes, uncomplicated; R06.00 Dyspnea, unspecified; R00.2 Palpitations; I25.119 Atherosclerotic heart disease of native coronary artery with unspecified angina pectoris
CPT/HCPCS: 36415; 80048; 80061; 80076; 83735; 84436; 84443; 84479; 85025; 93270

== ENCOUNTER 2023-12-05 14:12 | Outpatient (CLI) | payer OTHER, SELFPAY ==
--- NOTE | 2023-12-05 14:13 | CA_ITS ---
APPROVED REPORT EXAM: Comprehensive 2D, Doppler, and color-flow Echocardiogram Health Information Administrator: NIGEL Man, RVS Ht: 5 ft 4 in Wt: 173lbs BSA: 1.84 BP: 138/55 mmHg Indications: CAD, Plapitations, SOB, PVD, Smoker, HTN, HLD 2D Dimensions Left Atrium 3.02 cm LA Volume 26.10 mL LA Volume Index 13.90 mL/m2 (M/F) 16-34 M-Mode Dimensions RVDd 3.29 cm (0.9-2.6) LA Diam 3.80 cm (1.9-4.0) LVDd 5.29 cm (3.5-5.7) LVDs 3.83 cm (3.5-5.7) IVSd 0.57 cm (0.6-1.1) PWd 0.61 cm (0.6-1.1) EF (Teich) 53.20% EPSs 0.68 cm FS 27.60% EDV (Teich) 134.80 mL TAPSE 2.40 (<1.7) ESV (Teich) 63.10 mL LV Diastology E Decel Time 170 (160-240 msec) E/A Ratio 0.89 MED A' 11.50 cm/s LAT A' 11.80 cm/s Aortic Valve EITAN Index 1.21 cm2/m2 AoV Peak Kayden. 109.0 (50-130 cm/s) AO Peak GR. 4.70 mmHg AO Mean GR. 2.40 (<5 mmHg) AO VTI 18.6 (18-25 cm) EITAN (VTI) 2.28 (2.5-4.5 cm2) Mitral Valve MV E Max Kayden. 70.0 (40-130 cm/s) MV A Velocity 79.0 (40-130 cm/s) E/A Ratio 0.89 MV PHT 50.0 ms Pulmonary Valve PV Peak Velocity 91.0 (50-150 cm/s) Left Ventricle The left ventricle is normal size. The left ventricular systolic function is normal. The left ventricular ejection fraction is within the normal range. There is increase in LV wall thickness. There is also possible increase in apical LV wall. No obvious regional wall motion abnormalities are noted. However, regional wall motion cannot be entirely evaluated due to technically difficult study. Transmitral Doppler flow pattern suggests impaired LV relaxation. LVEF is 60%. Right Ventricle The right ventricle is normal size. The right ventricular systolic function is normal. Atria The left atrium size is normal. The right atrium size is normal. There is no Doppler evidence of interatrial shunt. Aortic Valve The aortic valve is mildly thickened. There is no aortic valvular stenosis. No aortic regurgitation is present. Mitral Valve The mitral valve is normal in structure. No evidence of mitral valve stenosis. Trace mitral regurgitation. Tricuspid Valve The tricuspid valve leaflets are thin and pliable. Trace tricuspid regurgitation. There is insufficient TR jet to estimate RVSP. Pulmonic Valve The pulmonary valve is normal in structure. Trace pulmonic regurgitation. Great Vessels The aortic root is normal in size. The ascending aorta is normal in size. IVC is normal in size and collapses >50% with inspiration. Pericardium There is no pericardial effusion. Other Information Study Quality: Technically Difficult Conclusion Technically difficult study due to poor acoustic windows. Normal biventricular systolic function. Possible increase in apical LV wall thickness. No significant valvular stenosis or regurgitation. In the setting of persistent symptoms and possible increase in apical LV wall thickness, further evaluation with cardiac MRI (HCM protocol) is suggested to rule out apical HCM, i.e. Joaquina syndrome. Electronically signed by : Sheron Li MD 12/12/2023 22:56:23
== END 2023-12-05 23:59 | disposition home or self-care (01) ==
LOC: RT 14:13
PROVIDERS: PCP Family Medicine; Visit Provider Physician Assistant
DX: R06.00 Dyspnea, unspecified (principal); R00.2 Palpitations; I11.9 Hypertensive heart disease without heart failure; I25.119 Atherosclerotic heart disease of native coronary artery with unspecified angina pectoris; F17.210 Nicotine dependence, cigarettes, uncomplicated
CPT/HCPCS: 93306

== ENCOUNTER 2023-12-16 11:07 | Day surgery (SDC) | payer OTHER, SELFPAY ==
[2023-12-16] VITALS (10 sets, daily range): BP systolic 110–139; BP diastolic 61–85; PULSE 56–78; RESP 16–18; O2SAT 96–98; BMI 29.7
--- NOTE | 2023-12-16 07:13 | IR_ITS ---
APPROVED REPORT Patient Location: Outpatient [facility] Developer: CRISTOBAL Allan RT (R) PROCEDURES Left heart catheterization Left ventriculogram Selective coronary angiogram Drug-eluting stent deployment to the posterior descending artery Drug-eluting stent deployment to the distal dominant right coronary INDICATION Coronary artery disease, Accelerated angina pectoris Informed consent was obtained prior to the procedure. COMPLICATIONS NONE Estimated Blood Loss: LESS THAN 10 ML TECHNIQUE One percent lidocaine used to anesthetize the right anterior aspect of the wrist. The right radial artery was accessed via the Seldinger technique. A 6 [place] sheath was placed in the right radial artery. 2.5 mg of Verapamil, 800 mcg of nitroglycerin, 1mg Lidocaine and 5000 U Heparin were given through the arterial sheath. The papa catheter was also used to perform left heart catheterization, left ventriculogram and selective coronary angiogram. At the end the diagnostic angiogram therapeutic heparin was administered giving a therapeutic ACT and the guide catheter was placed into the right coronary artery followed by Choice PT extra-support wire placed distally into the posterior descending artery. A 2.75 x 38 mm Jaun frontier stent was placed in the posterior descending artery back into the distal right coronary artery and deployed at 16 thania. An additional 3.5 x 18 mm Jaun frontier stent was placed proximal to the for stent yet still overlapping and deployed at 16 thania the balloon was advanced on 2 occasions and deployed at 16 thania to post dilate. DOUG-3 flow was present before and after the procedure. After achieving excellent angiographic results the apparatus was removed the sheath was removed and hemostasis was achieved using TR banding patient was transferred to the postop holding in stable condition ANGIOGRAPHIC RESULTS The left main artery Normal The left anterior descending artery Has a stent in the proximal segment is widely patent with minimal in-stent restenosis with excellent proximal distal transitioning. There is a large first diagonal artery which has a proximal eccentric 40% stenosis second diagonal artery is a medium sized vessel and has an ostial 40 to 50% in-stent restenotic lesion. The circumflex artery Nondominant gives rise to a medium sized ramus intermedius which is widely patent. The circumflex artery itself has a mid vessel eccentric 50% stenosis however the vessel is 2.25 mm in diameter at the stenotic lesion The right coronary artery Is a dominant vessel and has proximal 30% stenoses followed by a proximal to mid vessel stent which is widely patent with minimal in-stent restenosis. Distally there are 40% stenoses followed by a distal concentric 70% stenosis immediately proximal to the posterior descending artery and posterior left ventricular branch The HASSAN ventriculogram reveals Not performed The left ventricular end-diastolic pressure Not measured IMPRESSION Coronary artery disease as described above Successful stenting of the mid to distal right coronary artery severe disease reduced to 0% with 1 drug-eluting stent Successful stenting of the distal right coronary extending the proximal posterior sending artery severe disease reduced to 0% with 1 drug-eluting stent PLAN 1. Dual antiplatelet therapy 2. Cardiac rehabilitation 3. Avoidance of tobacco products 4. LDL less than 55 to proceed with high intensity statin Electronically signed by : Vj Michaels MD 12/16/2023 14:26:31
[2023-12-16 11:23] LABS: Basophils # 0.1 K/mm3 (0-0.2); Basophils % 0.9 % (0.1-2.0); Eosinophils # 0.1 K/mm3 (0.0-0.4); Eosinophils % 0.9 % (0.1-12.0); Hematocrit 47.2 % (42.0-52.0); Hemoglobin 15.7 g/dL (14.1-18.0); Lymphocytes # 2.8 K/mm3 (0.7-4.5); Mean Corpuscular HGB Conc 33.2 g/dL (31.8-35.4); Mean Corpuscular Hemoglobin 31.3 pg (27.0-31.2); Mean Corpuscular Volume 94.1 fl (80-94); Mean Platelet Volume 7.3 fl (7.4-10.4); Monocytes # 0.5 K/mm3 (0.1-1.0); Monocytes % 6.6 % (1.7-9.3); Neutrophils # 4.5 K/mm3 (1.8-7.8); Neutrophils % 56.5 % (37.0-80.0); Platelet Count 321 K/mm3 (142-424); Red Blood Count 5.02 M/mm3 (4.60-6.20); Red Cell Distribution Width 13.9 % (11.5-17.5)
[2023-12-16 11:50] LABS: Chloride 111 mmol/L (98-107); Potassium 3.9 mmoL/L (3.5-5.1); Sodium 141 mmol/L (136-145)
[2023-12-16 11:53] LABS: Anion Gap 6.9 mEq/L (5-15); Blood Urea Nitrogen 13 mg/dl (9-20); Calcium 9.1 mg/dl (8.4-10.2); Carbon Dioxide 27 mmol/L (22.0-30.0); Creatinine Clearance Estimated 77 mL/min (50-200); Estimated Glomerular Filt Rate 68 ml/min (>60); GFR (African American) 82 ML/MIN (>60); Glucose 97 mg/dl (74-100)
[2023-12-16] MEDS: HEPARIN 1,000 UNITS/500ML NS (CATH LAB) 3000 UNIT IV (13:03)
[2023-12-16] MEDS: 0.9 % SODIUM CHLORIDE 500 ML 25 ML IV (13:03)
[2023-12-16] MEDS: LIDOCAINE 1% 10ML MDV 20 ML IJ (13:04)
[2023-12-16] MEDS: HEPARIN 1,000 UNITS/ML 10ML VIAL (CATH LAB) 10000 UNIT IV (13:04)
[2023-12-16] MEDS: VERAPAMIL 2.5MG/ML 2ML VIAL 2.5 MG IV (13:04)
[2023-12-16] MEDS: NITROGLYCERIN 800MCG/8ML SYR (CATH LAB) 800 MCG IA (13:04)
[2023-12-16] MEDS: MIDAZOLAM HCL 1MG/1ML 5ML VIAL 1 MG IV (13:13)
[2023-12-16] MEDS: FENTANYL 100MCG/2ML VIAL 50 MCG IV (13:14)
[2023-12-16] MEDS: diphenhydrAMINE 50MG/ML VIAL 50 MG IV (13:21)
[2023-12-16] MEDS: IOPAMIDOL-370 (76%);100ML BOTTLE 110 ML IV (14:57)
[2023-12-16 15:00] LABS: CATHL Activated Clotting Time 329 SEC (74-125)
== END 2023-12-16 15:56 | disposition home or self-care (01) ==
PROVIDERS: PCP Family Medicine; Visit Provider Internal Medicine
DX: I25.118 Atherosclerotic heart disease of native coronary artery with other forms of angina pectoris (principal); I10 Essential (primary) hypertension; E78.5 Hyperlipidemia, unspecified; I70.213 Atherosclerosis of native arteries of extremities with intermittent claudication, bilateral legs; Z95.5 Presence of coronary angioplasty implant and graft; F17.210 Nicotine dependence, cigarettes, uncomplicated
CPT/HCPCS: 36415; 80048; 85025; 85347; 92928; 93458; 99152; C1725; C1769; C1874; C9600; J1200; J1644; J2250; J3010; Q9967

== ENCOUNTER 2024-01-05 10:19 | Outpatient (CLI) | payer OTHER, SELFPAY ==
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
== END 2024-01-05 23:59 | disposition home or self-care (01) ==
LOC: RAD 10:20
PROVIDERS: PCP Nurse Practitioner; Visit Provider Nurse Practitioner
DX: S09.8XXA Other specified injuries of head, initial encounter (principal)
CPT/HCPCS: 70450; 72125

== ENCOUNTER 2024-01-14 08:46 | Outpatient (RCR) | payer OTHER, SELFPAY | END 2024-01-14 08:50 | disposition home or self-care (01) | LOC: PT 08:46 | PROVIDERS: Visit Provider Nurse Practitioner | DX: M50.20 Other cervical disc displacement, unspecified cervical region (principal) | CPT/HCPCS: 97163 ==

== ENCOUNTER 2024-02-25 09:47 | Outpatient (CLI) | payer OTHER, SELFPAY ==
[2024-02-25 10:20] LABS: Blood Urea Nitrogen 15 mg/dl (9-20); Estimated Glomerular Filt Rate 61 ml/min (>60); GFR (African American) 74 ML/MIN (>60)
== END 2024-02-25 23:59 | disposition home or self-care (01) ==
LOC: RAD 09:48
PROVIDERS: PCP Family Medicine; Visit Provider Nurse Practitioner Family
DX: I25.10 Atherosclerotic heart disease of native coronary artery without angina pectoris (principal); I10 Essential (primary) hypertension; I73.9 Peripheral vascular disease, unspecified; E78.2 Mixed hyperlipidemia
CPT/HCPCS: 36415; 82565; 84520